=== PATIENT | male | born 1945 | race Caucasian/White ===

== ENCOUNTER 2020-09-22 10:10 | Day surgery (SDC) | payer MEDICARE ==
[2020-09-15 16:34] LABS: BASOPHILS % (AUTO) 0.7 % (0-1); EOSINOPHILS # (AUTO) 0.1 X10'3 (0-0.9); EOSINOPHILS % (AUTO) 1.8 % (0-6); LYMPHOCYTES # (AUTO) 1.2 X10'3 (1.1-4.8); LYMPHOCYTES % (AUTO) 22.7 % (21-51); MEAN CORPUSCULAR HGB CONC 34.7 g/dL (33.0-36.5); MEAN CORPUSCULAR VOLUME 89.3 FL (78-98); MEAN PLATELET VOLUME 9.5 FL (7.4-10.4); MONOCYTES # (AUTO) 0.6 X10'3 (0-0.9); MONOCYTES % (AUTO) 10.5 % (2-12); NEUTROPHILS # (AUTO) 3.4 X10'3 (1.8-7.7); NEUTROPHILS % (AUTO) 64.3 % (42-75); PRE OP HEMATOCRIT 46.4 % (42.0-52.0); PRE OP HEMOGLOBIN 16.1 g/dL (14.0-17.9); PRE OP PLATELET COUNT 175 X10'3 (140-440); RED CELL DISTRIBUTION WIDTH 13.4 % (11.5-14.5)
[2020-09-15 16:44] LABS: ALBUMIN 4.1 G/DL (3.4-5.0); ALBUMIN/GLOBULIN RATIO 1.1 (1.1-1.5); ALKALINE PHOSPHATASE 71 IU/L (46-116); BLOOD UREA NITROGEN 27 MG/DL (7-18); BUN/CREATININE RATIO 20.5 (5.4-32.0); CALCIUM 9.8 MG/DL (8.5-10.1); CHLORIDE 103 MMOL/L (99-107); CREATININE 1.32 MG/DL (0.60-1.10); PRE OP ALT 39 U/L (30-65); PRE OP ANION GAP 9 (8-16); PRE OP AST 23 U/L (10-37); PRE OP BILIRUB, TOTAL 0.4 MG/DL (0.0-1.0); PRE OP GLUCOSE 97 MG/DL (70-104); PRE OP POTASSIUM 3.9 MMOL/L (3.4-5.1); PRE OP SODIUM 139 MMOL/L (135-145); TOTAL CARBON DIOXIDE 26.8 MMOL/L (24-32); TOTAL PROTEIN 7.7 G/DL (6.4-8.2); eGFR 53 ML/MIN
[2020-09-15 16:55] LABS: CLARITY,URINE CLEAR (Clear); COLOR,URINE YELLOW (Yellow); GLUCOSE, URINE NEGATIVE (Neg); KETONES,URINE TRACE mg/dl (Neg); LEUKOCYTE ESTERASE ,URINE NEGATIVE (Neg); NITRITES, URINE NEGATIVE (Neg); OCCULT BLOOD,URINE NEGATIVE (Neg); PROTEIN,URINE NEGATIVE (Neg); UROBILINOGEN,URINE 0.2 E.U/dL (0.2-1.0)
[2020-09-15 16:56] LABS: UA COLLECTION TYPE NON-SPECIFIED
[2020-09-22] VITALS (14 sets, daily range): BP systolic 123–185; BP diastolic 61–101
[~2020-09-22] VITALS: Ht 185.4 cm; Wt 98.0 kg
[~2020-09-22 10:10] MED LIST: BUPIVAcaine/PF 2.5 mg/ml (0.25%) 30ml vial ONE; DICL50TA8 PO; LISI1TAB29 PO; ceFAZolin 2gm in dextrose, iso 50 ML IV ONE; famotidine 20mg tablet PO ONE; ringers solution, lacted 1,000 ML IV SCH
[2020-09-22] MEDS ORDERED: sevoflurane 250ml liquid IH ONE (14:02)
[2020-09-22] MEDS ORDERED: acetaminophen 1,000mg/100ml IV 100 ML IV PRN (14:05)
[2020-09-22] MEDS ORDERED: labetalol 20mg/4ml (5mg/ml) syringe IV PRN (14:05)
[2020-09-22] MEDS ORDERED: ringers solution, lacted 1,000 ML IV SCH (14:05)
[2020-09-22] MEDS ORDERED: hydrALAZINE 20mg/ml inj. IV PRN (14:05)
[2020-09-22] MEDS ORDERED: meperidine/PF 25mg/ml syringe IV PRN ×3 (14:05)
[2020-09-22] MEDS ORDERED: ondansetron/PF 4mg/2ml inj IV PRN (14:05)
[2020-09-22] MEDS ORDERED: morphine 2 MG/ML inj. syringe IV PRN (14:05)
[2020-09-22] MEDS ORDERED: proCHLORperazine 10 MG/2 ml inj IV PRN (14:05)
[2020-09-22] MEDS ORDERED: morphine 4 MG/ML inj SYRINge IV PRN (14:05)
[2020-09-22] MEDS ORDERED: midazolam 2 mg/2 ml injection ONE (14:10)
[2020-09-22] MEDS ORDERED: fentaNYL/PF 50MCG/1 ML 2ML syringe ONE (14:10)
[2020-09-22] MEDS ORDERED: rocuronium 10mg/ml inj IV ONE (14:30)
[2020-09-22] MEDS ORDERED: LIDOcaine 2% (20mg/ml) 5ml vial ONE (14:30)
[2020-09-22] MEDS ORDERED: dexamethasone sod phosphate 4mg/ml inj. ONE (14:30)
[2020-09-22] MEDS ORDERED: ondansetron/PF 4mg/2ml inj ONE (14:30)
[2020-09-22] MEDS ORDERED: propofol inj 20 ML IV ONE (14:30)
[2020-09-22] MEDS ORDERED: atropine 0.4 mg/ml 20ml vial ONE (16:04)
[2020-09-22] MEDS ORDERED: neostigmine methylsulfate 1 MG/ML 10ml vial ONE (16:04)
--- NOTE | 2020-09-22 16:42 | NUR ---
Received from OR via [facility] , accompanied by Anesthesiologist LEN and report given by Anesthesiolgist. PATIENT WITH 20G PIV IN LEFT HAND RUNNING LR AT 100. DENIES PAIN. 3 ABDOMINAL BANDAIDS THAT ARE CDI. PATIENT WITH VSS AT THIS TIME. Addendum: 09/22/20 at 1652 by Camilo Puentes RN, RN Amended: Links added.
--- NOTE | 2020-09-22 18:20 | NUR ---
PATIENT VERBALIZED UNDERSTANDING, OPPORTUNITY TO ASK QUESTIONS GIVEN AND PATIENT COMFORTABLE WITH DC. IV TAKEN OUT WITHOUT COMPLICATION. PATIENT HAS MET ALL DC CRITERIA FOR DC HOME. I HAVE REVIEWED D/C INSTRUCTIONS WITH PATIENT. TAKEN OUT VIA WHEELCHAIR WHERE PATIENT WAS TAKEN HOME WITH ALL BELONGINGS. FAMILY GAVE PATIENT TRANSPORT HOME PATIENT VOIDED, AMBULATED AND WAS ASSISTED IN DRESSING. PAIN WELL CONTROLLED AND SIG OTHER INEZ DROVE THE PATIENT HOME. SCRIPT HAS BEEN PICKED UP AND IS DRIVING HOME. Addendum: 09/22/20 at 1858 by Camilo Puentes RN, RN Amended: Links added.
== END 2020-09-22 18:21 | disposition home or self-care (01) ==
LOC: PAS 10:10
PROVIDERS: ATTEND Surgery
DX: K40.90 Unilateral inguinal hernia, without obstruction or gangrene, not specified as recurrent (principal); K40.91 Unilateral inguinal hernia, without obstruction or gangrene, recurrent; Z20.828 Contact with and (suspected) exposure to other viral communicable diseases; Z79.899 Other long term (current) drug therapy; E78.5 Hyperlipidemia, unspecified; I10 Essential (primary) hypertension; R10.30 Lower abdominal pain, unspecified
CPT/HCPCS: 36415; 49650; 49651; 80053; 81003; 82948; 85025; 87635; 93005; C1758; C1781; J0131; J0461; J1100; J2001; J2175; J2250; J2270; J2405; J2704; J2710; J3010; J3490; A4215; A4618; J7120

== ENCOUNTER 2025-06-21 07:02 | Emergency (ER) | payer MEDICARE ==
[~2025-06-21] VITALS: Ht 185.4 cm; Wt 97.2 kg
[~2025-06-21 07:02] MED LIST changes: -BUPIVAcaine/PF 2.5 mg/ml (0.25%) 30ml vial ONE; -LISI1TAB29 PO; +LISI1TAB53 PO; -ceFAZolin 2gm in dextrose, iso 50 ML IV ONE; -famotidine 20mg tablet PO ONE; -ringers solution, lacted 1,000 ML IV SCH
[2025-06-21 07:04] VITALS: TEMP 98.5
[2025-06-21 07:49] LABS: MEAN PLATELET VOLUME 9.2 FL (7.4-10.4); RED CELL DISTRIBUTION WIDTH 14.1 % (11.5-14.5)
[2025-06-21 07:52] LABS: LEUKOCYTE ESTERASE ,URINE NEGATIVE (Neg); NITRITES, URINE NEGATIVE (Neg); OCCULT BLOOD,URINE MODERATE (Neg)
[2025-06-21 08:10] LABS: UA COLLECTION TYPE VOIDED
--- NOTE | 2025-06-21 08:13 | Physician Documentation ---
History of Present Illness Chief Complaint: Abdominal Pain Stated Complaint: LOWER ABD/GROIN PAIN Time Seen by MD: 08:13 HPI 79-year-old male, presenting with right-sided abdominal pain He tells me that his symptoms started yesterday around 8:00 p.m.. He tells me that he had pain in his right lateral abdomen and lower quadrant. He states it was significant and severe, he was not able to find a position of comfort. Currently the pain has improved. No significant vomiting or diarrhea. No pain or burning with urination or hematuria. No history of abdominal surgeries. He does have a history of kidney stones. No other acute concerns Medication Reconciliation Allergies: Coded Allergies: No Known Allergies (Unverified , 06/21/25) Scheduled Lisinopril/Hydrochlorothiazide (Lisinopril-Hctz 20-25 mg Tab), 1 TAB PO DAILY, (Reported) Scheduled PRN Diclofenac Sodium (Diclofenac Sodium), 1 TAB PO BID PRN for pain, (Reported) Review of Systems Constitutional: Denies: fever Gastrointestinal: Reports: abdominal pain; Denies: vomiting, diarrhea Physical Exam Vital Signs: Temperature: 98.5, Source: Temporal, Heart Rate: 59, Respiratory Rate: 18, BP: 183/93, Pulse Oximetry: 99, Weight: 97.200 Oxygen Flow Rate: 0 Physical Exam General: This is a pleasant and overall healthy appearing elderly man, at bedside HEENT: Atraumatic, oropharynx is moist Heart: Regular rate and rhythm, normal-appearing peripheral perfusion Lungs: Clear breath sounds bilateral, normal work of breathing, normal oxygen saturation on room air Abdomen: Soft, nondistended, no significant reproducible tenderness. No palpable hernia. Back: No right CVA tenderness to percussion, no overlying rash to the flank Neuro: Alert and oriented, hard of hearing Psychiatric: Calm and cooperative with exam Progress Results/Orders Results/Orders Orders - NORMA ALEXANDRE MD BMP (06/21/25 07:08) Lipase (06/21/25 07:08) CMP (06/21/25 07:08) Ua W/Microscopic, Cult If Ind (06/21/25 07:41) Completed Orders - NORMA ALEXANDRE MD Cbc/Diff (06/21/25 07:08) Vital Signs 06/21/25 07:04 Temp 98.5 Pulse 59 Resp 18 B/P (MAP) 183/93 Pulse Ox 99 O2 Flow Rate 0 Laboratory Tests Test 06/21/25 07:27 06/21/25 07:41 White Blood Count 8.5 Red Blood Count 5.67 Hemoglobin 16.9 Hematocrit 49.2 Mean Corpuscular Volume 86.8 Mean Corpuscular Hemoglobin 29.8 Mean Corpuscular Hemoglobin Concent 34.3 Red Cell Distribution Width 14.1 Platelet Count 174 Mean Platelet Volume 9.2 Neutrophils (%) (Auto) 82.4 H Lymphocytes (%) (Auto) 9.9 L Monocytes (%) (Auto) 6.8 Eosinophils (%) (Auto) 0.2 Basophils (%) (Auto) 0.7 Neutrophils # (Auto) 7.0 Lymphocytes # (Auto) 0.8 L Monocytes # (Auto) 0.6 Eosinophils # (Auto) 0.0 Basophils # (Auto) 0.1 CBC Comment Chemistry Comments Urine Specimen Description Voided Urine Color Yellow Urine Clarity Clear Urine pH 5.5 Urine Specific [place] 1.025 Urine Protein Trace Urine Glucose (UA) Negative Urine Ketones Negative Urine Occult Blood Moderate H Urine Nitrite Negative Urine Bilirubin Negative Urine Urobilinogen 0.2 Urine Leukocyte Esterase Negative Volume Urine Centrifuged 10 ml Urine Comment EKG/XRAY/CT/US/VASC/MRI CT : Impression I personally interpreted the CT scan, and this shows a tiny right-sided kidney stone at the J Medical Decision Making Differential Dx:Considerations: Include: Aortic dissection, Appendicitis, Bowel obstruction, Diverticular disease, Hernia, Urolithiasis Additional Comments The patient presents with right-sided abdominal pain, which has improved compared to last night. On exam I am unable to reproduce his pain with palpation, and he has no CVA tenderness over the right kidney. Vital signs normal. Labs are grossly unremarkable, urinalysis with hematuria only. CT scan shows a right-sided kidney stone without complication. No appendicitis or other dangerous findings. On re-evaluation he was still feeling okay, good enough for discharge home. He does not tolerate stronger pain medications, and so he will continue with ibuprofen and Tylenol. He was given home care instructions including increased hydration. Return precautions given. Departure Time of Disposition: 11:54 Disposition: 01 HOME / SELF CARE / HOMELESS Impression: Primary Impression: Acute right flank pain Additional Impression: Kidney stone on right side Condition: Stable Referrals: NO PRIMARY CARE PROVIDER (PCP) Education Educated: Patient, Family Educated regarding: diagnosis, treatment, need for follow up Signature Scribe Signature: na Attestation: NORMA Tipton MD Jun 21, 2025 08:13
[2025-06-21 08:30] LABS: SQUAMOUS EPITHELIAL CELL,UR FEW /LPF (FEW)
[2025-06-21 08:47] LABS: CREATININE 1.07 MG/DL (0.60-1.10); TOTAL CARBON DIOXIDE 26.6 MMOL/L (24-32); eCRCL 61 ML/MIN; eGFR 66 ML/MIN
[2025-06-21] MEDS ORDERED: iohexol 300mg/ml 100ml inj. ONE (09:07)
--- NOTE | 2025-06-21 11:30 | RADIOLOGY REPORT ---
Exam: CT CT ABDOMEN PELVIS W/ IV CONTRAST History: Right-sided abdominal pain, hematuria, eval stone versus appy COMPARISON: None Technique: Multidetector spiral CT of the abdomen and pelvis was performed from lung bases to pubic symphysis. Intravenous contrast was administered during this examination. Portal venous imaging was obtained. Axial, coronal and sagittal multiplanar reformats were performed by the technologist on a separate workstation. Radiation Dose : 1. Abdomen/Pelvis: CTDIvol 28 mGy, DLP 1553 mGy*cm. CONTRAST: Type of contrast: Omni 300 Contrast injected: 100 ml Findings: Lung Bases: No acute or significant lung base finding. Normal heart size. No pleural or pericardial effusion. Liver: The liver is normal in size. No focal lesions. Normal hepatic vascular enhancement. Gallbladder and Biliary Tree: Unremarkable Spleen: Unremarkable Pancreas: The pancreas is normal in appearance without focal lesions or abnormal enhancement. Adrenal Glands: Unremarkable Kidneys: Atrophic right kidney. 6 mm stone is seen in the lower pole of the right kidney. No hydronephrosis. Bladder: Unremarkable Bowel: The stomach is grossly normal in appearance. Small bowel and colon are normal in caliber and distribution. Normal appendix is visualized in the right lower quadrant without findings of appendicitis. Ascites: Absent Lymphadenopathy: No mesenteric, retroperitoneal or periportal lymphadenopathy. Abdominal Wall and Mesentery: Unremarkable. Vasculature: The visualized abdominal aorta is normal in size and caliber. Abdominal and pelvic vessels demonstrate normal enhancement. Pelvic Organs: Unremarkable Musculoskeletal: No aggressive focal bony lesions, acute fractures or dislocation. IMPRESSION: 1. Atrophic right kidney with 6 mm stone in the lower pole. 2. No hydronephrosis. 3. Normal appendix Radiation optimization: All CT scans at this facility use at least one of these dose optimization techniques: automated exposure control mA and/or kV adjustment per patient size (includes targeted exams where dose is matched to clinical indication) or iterative reconstruction.
[2025-06-21 11:50] VITALS: BP 168/88; PULSE 69; RESP 18; O2SAT 95
== END 2025-06-21 12:02 | disposition home or self-care (01) ==
LOC: ER 07:03
DX: N20.0 Calculus of kidney (principal); Z79.899 Other long term (current) drug therapy
CPT/HCPCS: 36415; 74177; 80053; 81001; 83690; 85025; 99285; Q9967